=== PATIENT | female | born 1955 | race Caucasian/White ===

== ENCOUNTER 2018-05-05 12:48 | Inpatient (IN) ==
[2018-05-05] MEDS ORDERED: ASPIRIN PO ONE (13:15)
--- NOTE | 2018-05-05 13:45 | Diag Imaging Result Doc PS360 ---
EXAM: CHEST-2 VIEWS HISTORY: SOB TECHNIQUE: Chest two views COMPARISON: 05/04/2018 FINDINGS: The lungs are hyperexpanded. The heart is not enlarged. The vessels are not distended. Mild increased interstitial markings believed to be fibrosis. No pleural effusions. Tortuous thoracic aorta. Stable nodular density in the left costophrenic angle. There are surgical clips in the left axilla. IMPRESSION: Stable chest. Electronically signed by Drew Lemus 05/05/2018 1:42 PM
--- NOTE | 2018-05-05 13:48 | EKG Report ---
Test Performed on : 05/05/2018 1:24:09 PM Test Reason : SOB Blood Pressure : / mmHG Vent. Rate : 089 BPM Atrial Rate : 089 BPM P-R Int : 136 ms QRS Dur : 100 ms QT Int : 384 ms P-R-T Axes : 078 -28 074 degrees QTc Int : 467 ms Normal sinus rhythm. Possible Left atrial enlargement Borderline ECG When compared with ECG of 04-MAY-2018 07:23, (Unconfirmed) No significant change was found Unconfirmed Result
[2018-05-05 13:49] LABS: BASO# 0.08 X1000 (0.0-0.2); BASO% 0.6 % (0.0-0.8); EOS# 0.16 X1000 (0.0-0.7); EOS% 1.1 % (0.0-10.0); HEMATOCRIT 44.2 % (37.0-47.0); HEMOGLOBIN 14.7 g/dL (12.0-16.0); IMM GRAN% 4.8 % (0.0-0.5); LYMPH# 3.41 X1000 (1.2-3.4); LYMPH% 23.6 % (20.5-51.1); MCH 27.8 PG (27-31); MCHC 33.3 g/dL (33-37); MCV 83.7 FL (81-99); MONO# 1.12 X1000 (0.11-0.59); MONO% 7.8 % (1.7-9.3); NEUT# 8.98 X1000 (1.4-6.5); NEUT% 62.1 % (42.2-75.2); PLT 374 X1000 (130-400); RBC 5.28 XMIL (4.2-5.4); RDW 15.4 % (11.5-14.5); WBC 14.45 X1000 (4.8-10.8)
[2018-05-05 13:54] LABS: INR 0.87; PROTIME 12.5 Seconds (11.0-16.0)
[2018-05-05 13:55] LABS: PTT 22.2 Seconds (22.3-41.8)
[2018-05-05 14:04] LABS: AGAP 15; ALB/GLOB RATIO 1.4; ALBUMIN 3.3 g/dL (3.5-5.0); ALKALINE PHOSPHATASE 101 U/L (32-104); BUN 18 mg/dL (8-22); CALCIUM 9.1 mg/dL (8.8-10.2); CHLORIDE 96 mmol/L (98-107); CK PROFILE 37 U/L (24-173); COSMO 285; CREATININE 0.6 mg/dL (0.5-0.9); ESTIMATED GFR > 60; GLUCOSE 265 mg/dL (70-104); GOT 16 U/L (10-30); GPT 16 U/L (10-36); POTASSIUM 3.6 mmol/L (3.5-5.1); SODIUM 137 mmol/L (136-145); TCO2 26 mmol/L (25-35); TOTAL BILIRUBIN 0.24 mg/dL (0.20-1.00); TOTAL PROTEIN 5.7 g/dL (6.3-8.3)
[2018-05-05 14:20] LABS: URINE SOURCE CLEAN CATCH
[2018-05-05 14:26] LABS: BILIRUBIN URINE NEGATIVE (NEGATIVE); BLOOD URINE NEGATIVE (NEGATIVE); COLOR YELLOW; GLUCOSE URINE 500 mg/dL (NEGATIVE); KETONE URINE NEGATIVE (NEGATIVE); LEUKOCYTES URINE NEGATIVE (NEGATIVE); NITRITE URINE NEGATIVE (NEGATIVE); PH URINE 6.5; PROTEIN URINE NEGATIVE (NEGATIVE); SP GRAVITY URINE 1.015; TURBIDITY URINE CLEAR (CLEAR); UROBILINOGEN URINE NORMAL (NORMAL)
[2018-05-05 14:27] LABS: UR EPITHELIAL CELLS <10 /HPF (<10); URINE BACTERIA NEGATIVE /HPF; URINE RBC <10 /HPF (<10); URINE WBC <10 /HPF (<10)
--- NOTE | 2018-05-05 14:42 | ED EKG INTERP ---
This chart was entered by Ermelinda Varner Scribe, acting as scribe for Lexie Herring MD. EKG Interpretation - EKG Time of EKG reading by physician:: 13:24 EKG Read and Signed by:: Lexie Herring EKG Interpretation (*Must complete 3 of following elements*): Abnormal Rate: 89 Rhythm: normal sinus rhythm Comments: possible left atrial enlargement Attestation - Physician/ ARACELY Attestation The physician spent face to face time with patient:: No Advanced Practice Provider documentation review:: Supervising physician onsite and consulted in the evaluation and care of this patient. The physician did not have a face to face encounter with the patient. This chart was documented by the indicated scribe, (Ermelinda Varner Scribe) and accurately reflects the services I performed and decisions made by me, Lexie Herring MD, as attested by the provider's signature.
--- NOTE | 2018-05-05 17:34 | PROVIDER DOCUMENTATION ---
This chart was entered by Ermelinda Varner Scribe, acting as scribe for Lexie Herring MD. HPI-Respiratory General - General Chief Complaint: Shortness of Breath Stated Complaint: SHORTNESS OF BREATH / EXTREMITY SWELLING Time Seen by Provider: 05/05/18 16:53 Source: patient Allergies/Adverse Reactions: Patient Allergies Allergy/AdvReac Type Severity Reaction Status Date / Time Sulfa (Sulfonamide Allergy Severe ANAPHYLAXIS Verified 05/04/18 09:25 Antibiotics) [Sulfa(Sulfonamide Antibiotics)] erythromycin base Allergy Intermediate NAUSEA/VOMI Verified 05/04/18 09:25 [Erythromycin Base] TING tuberculin, purified protein Allergy Intermediate RASH Verified 05/04/18 09:25 deriva [From Tubersol] lorazepam [From Ativan] AdvReac Unknown confusion Verified 05/04/18 09:25 Dbkmxdd-Gnf-Apn Reductase AdvReac FATIGUE Verified 05/04/18 09:25 Inhibitor Home Medications: Home Medication List Medication Instructions Recorded Confirmed Last Taken Type Clonidine [Catapres] 0.1 mg PO DAILY tablet 07/09/17 05/04/18 05/03/18 Rx Albuterol Sulfate Inhaler 2 puff INH Q6H PRN PRN #1 inhaler 10/31/17 05/02/18 Rx [Ventolin Hfa] Furosemide [Lasix] 40 mg PO DAILY 10/31/17 05/02/18 05/03/18 History Guaifenesin/Codeine Phosphate 5 ml PO Q6H PRN #120 ml 04/30/18 05/04/18 Rx [Codeine-Guaifen 10-100 mg/5 ml] Prednisone 40 mg PO DAILY 4 Days tab 04/30/18 05/04/18 05/03/18 Rx LISINOpril [Prinivil] 40 mg PO DAILY PRN 05/02/18 05/04/18 05/03/18 History - History of Present Illness-Resp Nature of Presenting Problem: Patient is a 63 year old female who presents to the ED with shortness of breath. Patient also states chest pain and back pain. Patient states symptoms started 3 days ago. Patient does not report fever or congestion. Quality of Pain: reports: tightness Severity in ED: reports: mild Onset/Duration: reports: 3 days ago Timing: reports: still present Cough Quality/Degree: reports: no cough Current Respiratory Medication Therapy: Initiated see nurses note Modifying Factors: improves with: nothing Associated Symptoms: reports: chest pain/soreness (chest pain), shortness of breath, other (back pain) Similar Symptoms Previously?: Yes Recently seen or treated by another doctor?: Yes Review of Systems - Adult - REVIEW OF SYSTEMS - ADULT Constitutional: reports: no symptoms reported Eyes: reports: no symptoms reported Ears, Nose, Mouth & Throat: reports: no symptoms reported Cardiovascular: reports: chest pain. denies: heart murmur, orthopnea Respiratory: reports: shortness of breath. denies: cough, wheezing Gastrointestinal: reports: no symptoms reported Genitourinary: reports: no symptoms reported Musculoskeletal: reports: back pain. denies: joint pain, neck pain Integumentary: reports: no symptoms reported Neurological: reports: no symptoms reported Psychiatric: reports: no symptoms reported Endocrine: reports: no symptoms reported Hematologic/Lymphatic: reports: no symptoms reported Allergic/Immunologic: reports: no symptoms reported All Other Systems: Reviewed and Negative Past History - Adult - PAST MEDICAL HISTORY-ADULT Review of Records: reports: Nursing Assessment Review, Medications Reviewed, Social history reviewed & non-contributory. Major Childhood Illnesses: reports: denies history Cardiovascular: reports: CAD, CHF, HTN, hyperlipidemia, LA Respiratory: reports: asthma, bronchitis, COPD, cancer (lung cancer ), pneumonia Gastrointestinal: reports: denies history Obstetrical/Gynecological: reports: other (breast ca) Genitourinary: reports: kidney disease, other (bladder sling) Musculoskeletal: reports: arthritis (ra, osteo), chronic pain, fibromyalgia Neurological: reports: CVA, dementia, Seizures/Epilepsy Psychiatric: reports: depression, psychiatric problems (breakdown), ptsd Endocrine/Immune: reports: Diabetes Other Conditions: reports: denies history - PRIOR SURGERIES/PROCEDURES Surgical/Procedure History: reports: hysterectomy, BTL, other (left breast) - IMMUNIZATION STATUS Childhood Immunizations: See Nurse Assessment Flu Vaccine: See Nurse Assessment - FAMILY HISTORY Family History: reviewed, not pertinent - SOCIAL HISTORY Smoking: cigarettes (former) Substance Use: denies Physical Exam-General - PHYSICAL EXAM-ADULT Initial Vital Signs Reviewed: Yes - CONSTITUTIONAL General Appearance: alert, no apparent distress - HEAD, EARS, NOSE, MOUTH & THROAT HENMT: normal ENT inspection - NECK Neck: normal inspection - RESPIRATORY Respiratory: chest non-tender, lungs clear, normal breath sounds - CARDIOVASCULAR Cardiovascular: normal peripheral pulses, regular rate, rhythm - GASTROINTESTINAL (ABDOMEN) Abdominal Exam: normal bowel sounds, non tender, soft - MUSCULOSKELETAL Back Exam: normal inspection Extremity: non-tender, other (2 + pitting edema to bilateral extremities.) - SKIN Integumentary: normal color, normal turgor, warm/dry - NEUROLOGIC Neurologic: grossly normal - PSYCHIATRIC Psych/Mental Status: normal mood/affect, oriented x 3 Progress - PLAN OF CARE/RESULTS Progress/Plan/Lab Results: Vital Signs - 8 hr 05/05/18 13:12 Temperature 97.6 F Pulse Rate 95 H Respiratory Rate 22 Blood Pressure 158/106 O2 Sat by Pulse Oximetry 94 L Laboratory Results - last 24 hr 05/05/18 05/05/18 05/05/18 13:28 13:28 13:28 WBC 14.45 H RBC 5.28 Hgb 14.7 Hct 44.2 MCV 83.7 MCH 27.8 MCHC 33.3 RDW Std Deviation 15.4 H Plt Count 374 MPV 10.0 Immature Gran % (Auto) 4.8 H Neut % (Auto) 62.1 Lymph % (Auto) 23.6 Chambers % (Auto) 7.8 Eos % (Auto) 1.1 Baso % (Auto) 0.6 Immature Gran # (Auto) 0.70 H Neut # (Auto) 8.98 H Lymph # (Auto) 3.41 H Chambers # (Auto) 1.12 H Eos # (Auto) 0.16 Baso # (Auto) 0.08 PT INR PTT (Actin FS) Sodium 137 Potassium 3.6 Chloride 96 L Carbon Dioxide 26 Anion Gap 15 BUN 18 D Creatinine 0.6 Estimated GFR/1.73 m2 > 60 BUN/Creatinine Ratio 30 Glucose 265 H D Calculated Osmolality 285 Calcium 9.1 Total Bilirubin 0.24 AST 16 ALT 16 Alkaline Phosphatase 101 Creatine Kinase 37 Troponin T Ipe-L-Buixookrdvr Pept 376 H Total Protein 5.7 L Albumin 3.3 L Globulin 2.4 Albumin/Globulin Ratio 1.4 Plasma Lactate Urine Source Urine Color Urine Turbidity Urine pH Ur Specific [place] Urine Protein Ur Glucose (Stick) Ur Ketones (Stick) Urine Blood Urine Nitrite Urine Bilirubin Urobilinogen Dipstick Urine Leukocytes Urine WBC (Auto) Urine RBC (Auto) U Epithel Cells (Auto) Urine Bacteria (Auto) 01/07/19 01/07/19 01/07/19 13:28 13:28 13:28 WBC RBC Hgb Hct MCV MCH MCHC RDW Std Deviation Plt Count MPV Immature Gran % (Auto) Neut % (Auto) Lymph % (Auto) Chambers % (Auto) Eos % (Auto) Baso % (Auto) Immature Gran # (Auto) Neut # (Auto) Lymph # (Auto) Chambers # (Auto) Eos # (Auto) Baso # (Auto) PT 12.5 INR 0.87 PTT (Actin FS) 22.2 L Sodium Potassium Chloride Carbon Dioxide Anion Gap BUN Creatinine Estimated GFR/1.73 m2 BUN/Creatinine Ratio Glucose Calculated Osmolality Calcium Total Bilirubin AST ALT Alkaline Phosphatase Creatine Kinase Troponin T < 0.010 Jla-C-Odmabvnwxsa Pept Total Protein Albumin Globulin Albumin/Globulin Ratio Plasma Lactate 3.5 H Urine Source Urine Color Urine Turbidity Urine pH Ur Specific [place] Urine Protein Ur Glucose (Stick) Ur Ketones (Stick) Urine Blood Urine Nitrite Urine Bilirubin Urobilinogen Dipstick Urine Leukocytes Urine WBC (Auto) Urine RBC (Auto) U Epithel Cells (Auto) Urine Bacteria (Auto) 05/05/18 14:16 WBC RBC Hgb Hct MCV MCH MCHC RDW Std Deviation Plt Count MPV Immature Gran % (Auto) Neut % (Auto) Lymph % (Auto) Chambers % (Auto) Eos % (Auto) Baso % (Auto) Immature Gran # (Auto) Neut # (Auto) Lymph # (Auto) Chambers # (Auto) Eos # (Auto) Baso # (Auto) PT INR PTT (Actin FS) Sodium Potassium Chloride Carbon Dioxide Anion Gap BUN Creatinine Estimated GFR/1.73 m2 BUN/Creatinine Ratio Glucose Calculated Osmolality Calcium Total Bilirubin AST ALT Alkaline Phosphatase Creatine Kinase Troponin T Jsh-U-Gvjczxxasrt Pept Total Protein Albumin Globulin Albumin/Globulin Ratio Plasma Lactate Urine Source CLEAN CATCH Urine Color YELLOW Urine Turbidity CLEAR Urine pH 6.5 Ur Specific [place] 1.015 Urine Protein NEGATIVE Ur Glucose (Stick) 500 A Ur Ketones (Stick) NEGATIVE Urine Blood NEGATIVE Urine Nitrite NEGATIVE Urine Bilirubin NEGATIVE Urobilinogen Dipstick NORMAL Urine Leukocytes NEGATIVE Urine WBC (Auto) <10 Urine RBC (Auto) <10 U Epithel Cells (Auto) <10 Urine Bacteria (Auto) NEGATIVE Orders Category Date Time Status Cardiac Monitoring DIRECTED Care 05/05/18 13:16 Active Oxygen Therapy- ED Nursing DIRECTED Care 05/05/18 13:16 Active Saline Loc NOW Care 05/05/18 13:16 Active CHEST-2 VIEWS [RAD] Stat Exams 05/05/18 13:16 Completed ABG [RESP] Routine Lab 05/05/18 17:47 Ordered BLOOD CULTURE [BLDCUL] Stat Lab 05/05/18 17:47 Ordered CBC WITH ELECTRONIC DIFF [HEME] Stat Lab 05/05/18 13:28 Completed CK PROFILE [SP CHEM] Stat Lab 05/05/18 13:28 Completed COMPREHENSIVE METABOLIC PANEL [CHEM] Stat Lab 05/05/18 13:28 Completed LACTATE, PLASMA [CHEM] Stat Lab 05/05/18 13:28 Completed LACTATE, PLASMA [CHEM] Stat Lab 05/05/18 17:47 Uncollected PRO B-NATRIURETIC PEPTIDE Stat Lab 05/05/18 13:28 Completed PROTIME WITH INR [COAG] Stat Lab 05/05/18 13:28 Completed PTT [COAG] Stat Lab 05/05/18 13:28 Completed TROPONIN T Stat Lab 05/05/18 13:28 Completed UA NIMS W/REFLEX CULT [URINALYSIS] Stat Lab 05/05/18 14:16 Completed Albuterol 2.5MG/Ipratrop 0.5MG [Duoneb (A & A)] Med 05/05/18 17:49 Discontinued 3 ml INH NOW ONE Aspirin Med 05/05/18 13:15 Discontinued 325 mg PO NOW ONE Levofloxacin 750 mg/D5w [Levaquin 750 mg/D5w] Med 05/05/18 17:47 Active 750 mg in 150 ml IV NOW Methylprednisolone Sod Succ [Solu-Medrol] Med 05/05/18 17:47 Discontinued 125 mg IV NOW ONE Aerosol Treatments Routine Oth 05/05/18 17:49 Active Aerosol Treatments Stat Oth 05/05/18 17:49 Active CP/SOB/Palp >45 yrs of Age Stat Oth 05/05/18 13:15 Ordered EKG [EKG] Stat Ther 05/05/18 13:16 Draft Result Diagrams: 05/05/18 13:28 05/05/18 13:28 - XRAY 1 XRAY Study: Chest Impression: See EMR Report (EXAM: CHEST-2 VIEWS HISTORY: SOB TECHNIQUE: Chest two views COMPARISON: 05/04/2018 FINDINGS: The lungs are hyperexpanded. The heart is not enlarged. The vessels are not distended. Mild increased interstitial markings believed to be fibrosis. No pleural effusions. Tortuous thoracic aorta. Stable nodular density in the left costophrenic angle. There are surgical clips in the left axilla. IMPRESSION: Stable chest. Electronically signed by Drew Lemus 05/05/2018 1:42 PM 05/05/18 1342 Interpreting Physician: Drew Lemus MD Dictated Date/Time: 05/05/18 1341 cc: Lexie Herring MD; Leida Snatos) - CONSULTS/PCP/HOSPITALIST Notification #1 *Consult/PCP/Hospitalist*: ИВАН Sidhu for Hospitalist Time Discussed: 17:46 (Dr. Sanchez accepted ) Reason/Comments: Dr. Herring consulted with Nahum about patient. Consult Disposition: Admit Departure - Departure Date of Disposition Decision: 05/05/18 Time of Disposition Decision: 17:46 DIAGNOSIS: COPD (chronic obstructive pulmonary disease) Disposition: ADMITTED INPATIENT 09 Certified Medical Emergency: Emergent Condition: Stable Referrals and Follow-Ups: Leida Santos CRNP [Primary Care Provider] - - Critical Care Note This patient required my direct & personal management of CC.: No Attestation - Physician/ ARACELY Attestation The physician spent face to face time with patient:: Yes Advanced Practice Provider documentation review:: Supervising physician onsite and consulted in the evaluation and care of this patient. The physician did have a face to face encounter with the patient. This chart was documented by the indicated scribe, (Ermelinda Varner Scribe) and accurately reflects the services I performed and decisions made by me, Lexie Herring MD, as attested by the provider's signature.
[2018-05-05] MEDS ORDERED: LEVAQUIN 750 MG/D5W 750 MG/150 ML IVPB IV ONE (17:47)
[2018-05-05] MEDS ORDERED: SOLU-MEDROL IV ONE (17:47)
[2018-05-05] MEDS ORDERED: DUONEB (A & A) INH ONE (17:49)
[2018-05-05 18:19] LABS: URINE SOURCE VOIDED
[2018-05-05] MEDS ORDERED: LABETALOL IV PRN (18:29)
[2018-05-05] MEDS ORDERED: LASIX IV ONE (18:29)
[2018-05-05 18:32] LABS: BILIRUBIN URINE NEGATIVE (NEGATIVE); BLOOD URINE NEGATIVE (NEGATIVE); COLOR YELLOW; GLUCOSE URINE >1000 mg/dL (NEGATIVE); KETONE URINE NEGATIVE (NEGATIVE); LEUKOCYTES URINE NEGATIVE (NEGATIVE); NITRITE URINE NEGATIVE (NEGATIVE); PH URINE 6.5; PROTEIN URINE NEGATIVE (NEGATIVE); SP GRAVITY URINE 1.012; TURBIDITY URINE CLEAR (CLEAR); UROBILINOGEN URINE NORMAL (NORMAL)
[2018-05-05 18:33] LABS: ALLEN TEST YES; BE 7.7 mmoll (-3.0-3.0); BLOOD TYPE ARTERIAL; HCO3-(ACT) 30.4 mmoll (20.0-26.0); METHB 1.1 % (0.0-1.5); O2(CT) 17.1 mL/dL (15.0-23.0); PCO2(98.6) 42 mmHg (35-45); SAMPLE BLOOD; SAO2 84.3 % (95.0-100.0); THB 15.3 g/dL (11.5-17.4); pH(98.6) 7.49 (7.35-7.45)
[2018-05-05 18:33] LABS: UR EPITHELIAL CELLS <10 /HPF (<10); URINE BACTERIA NEGATIVE /HPF; URINE RBC <10 /HPF (<10); URINE WBC <10 /HPF (<10)
[2018-05-05 18:34] LABS: UR AMPHETAMINES QUAL NONE DETECTED (NONE DETECT); UR BARBITUATES QUAL NONE DETECTED (NONE DETECT); UR BENZODIAZEPIN QUAL NONE DETECTED (NONE DETECT); UR CANNABINOIDS QUAL NONE DETECTED (NONE DETECT); UR COCAINE QUAL NONE DETECTED (NONE DETECT); UR METHADONE QUAL NONE DETECTED (NONE DETECT); UR OPIATES QUAL NONE DETECTED (NONE DETECT); UR OXYCODONE QUAL NONE DETECTED (NONE DETECT); UR PCP QUAL NONE DETECTED (NONE DETECT)
[2018-05-05 18:35] LABS: MODALITY ROOM AIR; O2HB 79.8 % (95.0-99.0); PO2(98.6) 42 mmHg (60-100)
--- NOTE | 2018-05-05 19:05 | HISTORY AND PHYSICAL ---
DATE OF ADMISSION: 05/05/2018. PRIMARY CARE PHYSICIAN: ИВАН Blake. CHIEF COMPLAINT: Dyspnea and back pain. HISTORY OF PRESENT ILLNESS: Ms. Rodriguez is a [id number]- female well known to our service. Last discharged in March of last year. At that time, she was admitted for acute hypoxic respiratory failure requiring intubation. She was intubated and subsequently extubated and left against medical advice on 04/10/2018. She returns today with four days of progressive dyspnea, intermittent upper back pain and lower extremity edema. She denies any fever. No mucopurulent sputum production. No abdominal pain, nausea or vomiting. She states that any time she takes a deep breath or moves that the pain worsens in her back. It is more sharp in nature. She came to the ER today for evaluation. Laboratory work showed a mildly elevated white count at 14.45. She had a glucose of 265. ProBNP was 376 and lactic acid was 3.5. She denies any fever. No dysuria. Chest x-ray did not show anything acute. There are chronic changes. She has been started on appropriate COPD exacerbation medications. We will admit her for further treatment and evaluation. PAST MEDICAL HISTORY: 1. COPD with multiple episodes of respiratory failure. 2. Type 2 diabetes mellitus. 3. GERD. 4. Hypertension. 5. Recreational illicit substance dependence. 6. Medical noncompliance. 7. Significant psychiatric history of depression with multiple inpatient admissions to [facility] with suicidal ideation. 8. History of breast cancer. SURGICAL HISTORY: 1. . 2. Right partial mastectomy. 3. Left radical mastectomy. 4. Reports of coronary stenting. SOCIAL HISTORY: The patient reports quitting smoking 2 weeks ago (49 pack year history). She denies illicit substance use or alcohol use. However, she has clear documentation of positive tox screen in the past, most recently, amphetamine, methamphetamine and opiates. ALLERGIES: SULFA, ERYTHROMYCIN, PPD, ATIVAN, MORPHINE. HOME MEDICATIONS: Rescue inhaler. REVIEW OF SYSTEMS: 14 point review of systems obtained and found to be negative with the exception of the HPI. PHYSICAL EXAMINATION: VITAL SIGNS: Blood pressure 158/106, heart rate 95, respiratory rate 22 and O2 saturation 94% on room air. Temperature is 97.6. GENERAL: This is a chronically ill and disheveled appearing [id number]- female lying in the hospital bed in no acute distress. NEUROLOGICAL: Awake, alert and oriented. Follows commands. No focal deficits. HEENT: Normocephalic, atraumatic. Pupils are equal, round and reactive to light. Oral mucosa is moist. Trachea is midline. There is no JVD. CHEST: Diminished throughout but clear to auscultation . CV: Regular rate and rhythm. S1, S2 noted. No murmurs. GI: Soft and nondistended, nontender. Bowel sounds are positive. Bowel sounds are positive. EXTREMITIES: 1+ pitting edema bilaterally. Pulses are palpable but diminished. DIAGNOSTIC DATA: Chest x-ray showed stable nodular density in the left costophrenic angle. Surgical clips in the left axilla. Hyperinflation of the lungs. EKG showed a sinus rhythm. No acute ST or T abnormalities. WBC 14.45, hemoglobin 14.7, hematocrit 44.2, and platelet count 374. INR 0.87. Sodium 137, potassium 3.6, chloride 96, CO2 26, anion gap 15, BUN 18 , creatinine 0.6, glucose 265, calcium 9.1, LFTs negative. Troponin negative. ProBNP 376. Albumin 3.3. Lactic acid 3.5. Urinalysis showed 500 glucose. Otherwise negative. ASSESSMENT AND PLAN: 1. Chronic obstructive pulmonary disease exacerbation. We will admit the patient with IV antibiotics, steroids, breathing treatments, and aggressive pulmonary toilet. Chest x-ray does not show anything acute. Will check an ABG and blood cultures as well. 2. Upper back pain. She has had a recent left heart catheterization which showed some very mild 30-40% discrete lesion in the left ramus with diffuse other nonobstructing lesions throughout. We will continue with aspirin. We will continue to trend her enzymes. We will check a drug screen as well. If she is continuing to use amphetamines, this would certainly be a contributor with regard to chest pain. 3. Diastolic heart failure. The patient has edema of the lower extremities with some shortness of breath. Her chest x-ray does not show any pulmonary edema, and her proBNP is only slightly elevated. Echocardiogram done in October showed an EF of 55-60%. We will give her a one time dose of Lasix now and trend her enzymes. We will follow strict Is, Os and daily weights. 4. Hypertension. Will continue any home medications once compiled. If she is not on anything, we will start lisinopril. We will add IV labetalol PRN as well. 5. Diabetes mellitus. We will add pattern sugar and sliding scale insulin. Make sure her A1C is up to date. 6. Deep vein thrombosis prophylaxis with Lovenox. Dictated by ИВАН Louis for Riccardo Sanchez MD cc: ИВАН Louis MD [facility]
[2018-05-05] MEDS: DUONEB (A & A) INH SCH ×2 (19:30→23:05)
[2018-05-05] MEDS: LOVENOX SUBQ SCH (20:26)
[2018-05-05 20:42] LABS: ALLEN TEST YES; BE 6.7 mmoll (-3.0-3.0); BLOOD TYPE ARTERIAL; METHB 1.2 % (0.0-1.5); MODALITY CANNULA; O2(CT) 19.7 mL/dL (15.0-23.0); O2HB 91.5 % (95.0-99.0); PCO2(98.6) 43 mmHg (35-45); PO2(98.6) 64 mmHg (60-100); SAMPLE BLOOD; SAO2 96.3 % (95.0-100.0); THB 15.3 g/dL (11.5-17.4); pH(98.6) 7.47 (7.35-7.45)
[2018-05-05] MEDS: HUMULIN R SUBQ SCH (22:59)
[2018-05-06] MEDS: DUONEB (A & A) INH SCH ×6 (03:20→23:25)
[2018-05-06] MEDS: SOLU-MEDROL IV SCH ×4 (05:51→22:13)
[2018-05-06 06:22] LABS: ALLEN TEST YES; BE 6.5 mmoll (-3.0-3.0); BLOOD TYPE ARTERIAL; HCO3-(ACT) 29.8 mmoll (20.0-26.0); O2(CT) 18.8 mL/dL (15.0-23.0); PCO2(98.6) 44 mmHg (35-45); PO2(98.6) 55 mmHg (60-100); SAMPLE BLOOD; SAO2 93.3 % (95.0-100.0); THB 14.9 g/dL (11.5-17.4); pH(98.6) 7.46 (7.35-7.45)
[2018-05-06 06:24] LABS: MODALITY ROOM AIR; O2HB 89.7 % (95.0-99.0)
[2018-05-06] MEDS: HUMULIN R SUBQ SCH ×2 (06:42→11:31)
[2018-05-06 07:30] LABS: BASO# 0.05 X1000 (0.0-0.2); BASO% 0.5 % (0.0-0.8); HEMATOCRIT 44.5 % (37.0-47.0); HEMOGLOBIN 14.5 g/dL (12.0-16.0); IMM GRAN# 0.43 X1000 (0.0-0.04); IMM GRAN% 4.4 % (0.0-0.5); LYMPH# 1.46 X1000 (1.2-3.4); LYMPH% 15.1 % (20.5-51.1); MCH 27.4 PG (27-31); MCHC 32.6 g/dL (33-37); MCV 84.1 FL (81-99); MONO# 0.19 X1000 (0.11-0.59); MPV 9.9 FL (7.4-10.4); NEUT# 7.55 X1000 (1.4-6.5); PLT 366 X1000 (130-400); RBC 5.29 XMIL (4.2-5.4); RDW 15.3 % (11.5-14.5); WBC 9.68 X1000 (4.8-10.8)
[2018-05-06] MEDS: ASPIRIN PO SCH (08:28)
--- NOTE | 2018-05-06 14:26 | Diag Imaging Result Doc PS360 ---
CT THORAX W/O CONTRAST - 05/06/2018 INDICATION: left side chest pain, r/o PNA COMPARISON: 06/06/2015 FINDINGS: There is advanced COPD. There is a calcified granuloma in the left lower lobe. No focal infiltrates, pneumothorax, or pleural effusion. The airways are clear. No adenopathy. Heart size is normal. Upper abdominal images are normal. Bones are intact. IMPRESSION: Severe COPD. No acute disease. This exam was performed using automated exposure control, adjustment of mA or kV according to patient size, and/or use of iterative reconstruction technique Electronically signed by Leonardo Bettencourt 05/06/2018 2:24 PM
[2018-05-06] MEDS: NICODERM PATCH TD SCH (14:32)
--- NOTE | 2018-05-06 15:02 | PROGRESS NOTE ---
DATE: 05/06/2018 SUBJECTIVE: Patient reports still complaining of periodic chest pain that is getting worse when she inhales. No other complaints noted. OBJECTIVE: Vital Signs: Temperature 98.1, heart rate 81, respiratory rate 18, blood pressure 159/100, O2 saturation 92% on 4 L nasal cannula. General Examination: This is a 63-year-old female lying in bed, in no acute distress. Cardiovascular: S1, S2 heard. No murmurs, gallops, or rubs. Regular rate and rhythm. Respiratory: There is some diminished breath sounds in both pulmonary bases but patient is not using any accessory muscles or having work of breathing. Abdomen: Soft, nontender to palpation. Bowel sounds present. No organomegaly. Extremities: No clubbing or cyanosis. There is 1+ pitting edema in both lower extremities. Peripheral pulses present but faint. Neurological: Patient alert and oriented x3. Moves 4 extremities. LABORATORY DATA: CBC is unremarkable. ABG shows pH 7.46 with pCO2 44, oxyhemoglobin 89.7 on room air. ASSESSMENT/PLAN: 1. Chronic obstructive pulmonary disease exacerbation. We will continue with breathing treatments, antibiotics and steroids. Considering there was a suspicion for pneumonia, we are going to do a CT without contrast to see what we can do for this patient. 2. Diastolic heart failure. I do not think this patient is on any exacerbation. There is mild edema that she reports is basically the same that she has. No crackles on physical examination. So, at this point, I think we will continue with home medications. 3. Hypertension. Blood pressure is under control. We will continue with the same management. 4. Diabetes mellitus type 2. Patient is on sliding scale insulin. Accu-Chek before meals and also at bedtime. 5. Disposition. We will continue to monitor this patient closely. We will follow the results of the CT scan later on today. cc: Boone Byrnes MD [facility]
[2018-05-06] MEDS: HUMALOG SUBQ SCH ×3 (17:01→21:38)
[2018-05-06] MEDS: LEVAQUIN 500 MG/D5W 500 MG/100 ML IVPB IV SCH (18:53)
[2018-05-06] MEDS: LOVENOX SUBQ SCH (18:53)
[2018-05-07] MEDS: DUONEB (A & A) INH SCH ×6 (03:00→23:20)
[2018-05-07] MEDS: SOLU-MEDROL IV SCH ×4 (04:36→21:28)
[2018-05-07] MEDS: HUMALOG SUBQ SCH ×4 (06:12→21:48)
[2018-05-07 07:46] LABS: AGAP 13; BUN 16 mg/dL (8-22); CHLORIDE 96 mmol/L (98-107); COSMO 288; CREATININE 0.6 mg/dL (0.5-0.9); ESTIMATED GFR > 60; GLUCOSE 341 mg/dL (70-104); MAGNESIUM 1.8 mg/dL (1.5-2.7); POTASSIUM 3.4 mmol/L (3.5-5.1); SODIUM 137 mmol/L (136-145); TCO2 28 mmol/L (25-35)
[2018-05-07 08:04] LABS: BASO# 0.02 X1000 (0.0-0.2); BASO% 0.1 % (0.0-0.8); HEMOGLOBIN 13.7 g/dL (12.0-16.0); IMM GRAN# 0.42 X1000 (0.0-0.04); IMM GRAN% 2.9 % (0.0-0.5); LYMPH# 0.79 X1000 (1.2-3.4); LYMPH% 5.4 % (20.5-51.1); MCH 27.5 PG (27-31); MCHC 32.6 g/dL (33-37); MCV 84.2 FL (81-99); MONO# 0.39 X1000 (0.11-0.59); MONO% 2.7 % (1.7-9.3); MPV 9.9 FL (7.4-10.4); NEUT# 13.02 X1000 (1.4-6.5); NEUT% 88.9 % (42.2-75.2); PLT 347 X1000 (130-400); RBC 4.99 XMIL (4.2-5.4); RDW 15.5 % (11.5-14.5); WBC 14.64 X1000 (4.8-10.8)
[2018-05-07 08:22] LABS: BANDS 4 % (0-1); LYMPHS 2 % (21-51); MONO 2 % (1-9); SEGS 92 % (42-75)
[2018-05-07] MEDS: ASPIRIN PO SCH (11:08)
[2018-05-07] MEDS: NICODERM PATCH TD SCH (11:08)
[2018-05-07] MEDS: BASAGLAR SUBQ SCH ×2 (11:37→20:34)
[2018-05-07] MEDS: TYLENOL PO PRN ×2 (11:37→17:28)
[2018-05-07] MEDS ORDERED: INSULIN PEN NEEDLES ONE (11:47)
--- NOTE | 2018-05-07 15:27 | PROGRESS NOTE ---
DATE: 05/07/2018 SUBJECTIVE: Patient complaining of intermittent chest pain in the left side. She requested some Tylenol. OBJECTIVE: Vital Signs: Temperature 98.0, heart rate 87, respiratory rate 16, blood pressure 174/92, O2 saturation 97% on room air. General: On examination, this is a chronically ill- looking, 63-year-old, female lying in bed, in no acute distress. HEENT: Head is normocephalic, atraumatic. Neck: No JVD noted. No carotid bruits. No lymphadenopathy. No thyromegaly. Cardiovascular: S1, S2 heard. No murmurs, gallops, or rubs. Regular rate and rhythm. Respiratory: Exam diminished global breath sounds with minimal rhonchi in both pulmonary bases. Patient is not using any accessory muscles or having work of breathing. Abdomen: Soft. Nontender to palpation. Bowel sounds present. No organomegaly. Extremities: No clubbing, cyanosis, there is 1+ pitting edema in both lower extremities. Neurological: Patient alert and oriented x3. Moves 4 extremities. LABORATORY DATA: Reviewed. ASSESSMENT AND PLAN: 1. Chronic obstructive pulmonary disease exacerbation. We will continue with breathing treatments, antibiotics and steroids. CT of chest did not show anything except the chronic obstructive pulmonary disease exacerbation. So, at this point, we will continue with the same management. 2. Diastolic heart failure. I do not think she is in exacerbation. We will continue to monitor. 3. Hypertension. Blood pressure is under control. We will continue with the same medication. 4. Diabetes mellitus type 2 we will continue with sliding scale insulin and Accu-Chek before meals and also at bedtime. DISPOSITION: We will continue to monitor this patient closely. I think if she continues to improve, I think she will be ready in a couple days, but she requested to be sent to [facility]. We will see what we can do. cc: Boone Byrnes MD
[2018-05-07] MEDS: LOVENOX SUBQ SCH (17:28)
[2018-05-07] MEDS: LEVAQUIN 500 MG/D5W 500 MG/100 ML IVPB IV SCH (17:45)
[2018-05-08] MEDS: DUONEB (A & A) INH SCH ×2 (03:20→08:07)
[2018-05-08] MEDS: SOLU-MEDROL IV SCH (04:08)
[2018-05-08] MEDS: HUMALOG SUBQ SCH (06:28)
[2018-05-08 07:28] LABS: BASO# 0.04 X1000 (0.0-0.2); BASO% 0.2 % (0.0-0.8); HEMATOCRIT 43.6 % (37.0-47.0); HEMOGLOBIN 14.3 g/dL (12.0-16.0); IMM GRAN# 0.71 X1000 (0.0-0.04); IMM GRAN% 4.4 % (0.0-0.5); LYMPH# 0.72 X1000 (1.2-3.4); LYMPH% 4.5 % (20.5-51.1); MCH 27.6 PG (27-31); MCHC 32.8 g/dL (33-37); MCV 84.2 FL (81-99); MONO# 0.34 X1000 (0.11-0.59); MONO% 2.1 % (1.7-9.3); MPV 10.1 FL (7.4-10.4); NEUT# 14.21 X1000 (1.4-6.5); NEUT% 88.8 % (42.2-75.2); PLT 322 X1000 (130-400); RBC 5.18 XMIL (4.2-5.4); RDW 15.5 % (11.5-14.5); WBC 16.02 X1000 (4.8-10.8)
[2018-05-08 07:46] LABS: AGAP 16; BUN 16 mg/dL (8-22); CALCIUM 9.4 mg/dL (8.8-10.2); CHLORIDE 95 mmol/L (98-107); COSMO 288; CREATININE 0.5 mg/dL (0.5-0.9); ESTIMATED GFR > 60; GLUCOSE 301 mg/dL (70-104); MAGNESIUM 1.9 mg/dL (1.5-2.7); POTASSIUM 3.8 mmol/L (3.5-5.1); SODIUM 138 mmol/L (136-145); TCO2 27 mmol/L (25-35)
[2018-05-08 08:25] VITALS: BP 163/87
[2018-05-08] MEDS: ASPIRIN PO SCH (08:47)
[2018-05-08] MEDS: NICODERM PATCH TD SCH (08:47)
[2018-05-08] MEDS: TYLENOL PO PRN (08:47)
[2018-05-08] MEDS ORDERED: BASAGLAR SUBQ SCH (09:00)
--- NOTE | 2018-05-09 09:39 | DISCHARGE SUMMARY ---
ADMISSION DATE: 05/07/2018 DISCHARGE DATE: 05/08/2018 HOSPITAL COURSE SUMMARY: Patient was initially admitted with nausea, vomiting, fever and chills. It was thought after initial evaluation that she had sepsis from UTI and/or right great toe infection. She was started on IV antibiotics, and her chronic comorbidities were addressed. However, on the morning after admission, patient left the hospital AMA prior to being further evaluated. She left prior to any discussion of discharge medications, antibiotics, follow-up before any prescriptions were written.
== END 2018-05-08 09:52 | disposition left against medical advice (07) | DRG 191 ==
LOC: ED 12:48 → 3N 20:03 → SUATTDRO 20:03
PROVIDERS: ATTEND Internal Medicine
CPT/HCPCS: 71020; 71046; 71250; 80048; 80053; 80101; 80301; 80307; 80324; 80345; 80346; 80353; 80358; 80361; 80365; 81001; 82550; 82805; 82948; 83605; 83735; 83880; 83992; 84484; 85025; 85379; 85610; 85730; 87040; 87070; 87205; 93005; 94640; 94761; 94799; 96365; 96372; 96375; 99285; A9270; G0431; G0434; G0479; G0480; J1650; J1815; J1940; J1956; J2930; XXXXX